=== PATIENT | female | born 1995 | race American Indian/Alaskan Native ===

== ENCOUNTER → 2016-07-31 20:27 | Emergency (ER) | payer MEDICARE | END | disposition left against medical advice (07) | LOC: ED 20:27 | DX: Z53.21 Procedure and treatment not carried out due to patient leaving prior to being seen by health care provider (principal) ==

== ENCOUNTER 2021-02-02 13:48 | Emergency (ER) | payer MEDICARE | END 2021-02-02 15:42 | disposition left against medical advice (07) | LOC: ED 13:48 | DX: O26.891 Other specified pregnancy related conditions, first trimester (principal); Z53.21 Procedure and treatment not carried out due to patient leaving prior to being seen by health care provider ==